=== PATIENT | male | born 1960 | race Caucasian/White ===

== ENCOUNTER 2021-05-22 14:03 | Inpatient (IN) ==
[2021-05-22] MEDS ORDERED: Ipratropium 1 PUFF INHALER IH PRN (20:19)
[2021-05-22] MEDS ORDERED: Naloxone 0.4 MG/ML INJ IVP PRN (20:33)
[2021-05-22] MEDS ORDERED: Ondansetron 4 MG/2 ML VIAL IVP PRN (20:33)
[2021-05-22] MEDS ORDERED: Dextrose Gel 15 GM/37.5 ML TUBE PO PRN ×2 (20:47)
[2021-05-22] MEDS ORDERED: D5% in Water 1,000 ML IVC PRN (20:47)
[2021-05-22] MEDS ORDERED: *HR* Dextrose 50 % in Water (Vial) 50 ML VIAL IVP PRN (20:59)
[2021-05-22] MEDS ORDERED: Insulin DETEMIR 100 UNIT/ML X5UNITS SUBQ SCH (21:00)
[2021-05-22] MEDS: Insulin LISPRO 300 UNITS/3 ML VIAL SUBQ SCH (23:18)
[2021-05-23] MEDS: Ipratropium 1 PUFF INHALER IH SCH ×5 (00:17→20:12)
[2021-05-23 03:24] LABS: Hematocrit 37.3 % (37.5-50.1); Hemoglobin 11.9 g/dL (12.9-16.9); Mean Corpuscular HGB Conc 31.9 g/dL (31.6-35.5); Mean Corpuscular Hemoglobin 29.1 pg (28.0-33.3); Mean Corpuscular Volume 91.2 fL (83.0-100.0); Mean Platelet Volume 10.2 fL (9.4-12.4); Platelet Count 272 K/mcL (140-400); Red Blood Count 4.09 M/mcL (4.19-5.50); Red Cell Distribution Width 14.8 % (11.5-14.5); White Blood Count 5.5 K/mcL (4.3-11.1)
[2021-05-23 03:37] LABS: Alanine Aminotransferase 19 Units/L (7-52); Albumin 3.4 g/dL (3.5-5.7); Albumin/Globulin Ratio 0.9 (1.1-2.2); Alkaline Phosphatase 54 Units/L (34-104); Aspartate Amino Transferase 34 Units/L (13-39); BUN/Creatinine Ratio 20 (6-26); Bilirubin,Total 0.3 mg/dL (0.3-1.0); Blood Urea Nitrogen 20 mg/dL (8-23); C-Reactive Protein 293 mg/L (Less than 10); Calcium 8.8 mg/dL (8.6-10.3); Carbon Dioxide 25 mEq/L (23-29); Chloride 100 mEq/L (98-107); Globulin 3.9 g/dL (2.4-3.5); Glucose 306 mg/dL (70-105); Lactate Dehydrogenase 569 Units/L (140-271); Osmolality,Calculated 294 (280-300); Potassium 4.5 mEq/L (3.5-5.1); Sodium 135 mEq/L (136-145); Total Protein 7.3 g/dL (6.4-8.9); eGFR For African Americans > 60 (> 60); eGFR For Non-African Americans > 60 (> 60)
[2021-05-23 03:46] LABS: INR 1.1; Prothrombin Time 12.2 Seconds (9.4-12.1)
[2021-05-23 03:47] LABS: Activated Partial Thrombo Time 33.3 Seconds (26.0-36.0)
[2021-05-23 03:53] LABS: Ferritin 451 ng/mL (20-250)
[2021-05-23] MEDS: Insulin LISPRO 300 UNITS/3 ML VIAL SUBQ SCH ×3 (05:50→17:03)
[2021-05-23] MEDS: *HR* Enoxaparin 40 MG/0.4 ML SYRINGE SQ SCH (05:51)
[2021-05-23] MEDS: Azithromycin 250 MG TABLET PO SCH (08:37)
[2021-05-23] MEDS: Zinc Sulfate 220 MG CAPSULE PO SCH (08:37)
[2021-05-23] MEDS: Cholecalciferol (D-3) 1,000 UNIT (25MCG) TABLET PO SCH (08:37)
[2021-05-23] MEDS: Gabapentin 300 MG CAPSULE PO SCH ×4 (08:37→19:54)
[2021-05-23] MEDS: cefTRIAXone 1,000 MG in 0.9 % Sodium Chloride Mini Bag 100 ML IVPB SCH (08:38)
[2021-05-23] MEDS ORDERED: Azithromycin 500 MG in 0.9 % Sodium Chloride 250 ML IVPB SCH (09:00)
[2021-05-23] MEDS ORDERED: Dexamethasone Sodium Phos/PF 10 MG/ML VIAL IVP SCH ×2 (09:00→14:00)
[2021-05-23] MEDS ORDERED: 0.9 % Sodium Chloride 1,000 ML IVC SCH (10:45)
[2021-05-23] MEDS: Budesonide/Formoterol 160/4.5 1 PUFF INH IH SCH ×2 (12:39→20:12)
[2021-05-23] MEDS: *HR* OxyCODONE/APAP 10/325 TABLET PO PRN ×2 (13:07→21:11)
[2021-05-23] MEDS ORDERED: Dexamethasone Sodium Phos/PF 10 MG/ML VIAL IVP ONE (14:45)
[2021-05-23] MEDS ORDERED: Insulin DETEMIR 100 UNIT/ML X5UNITS SUBQ SCH (21:00)
[2021-05-24] MEDS: Insulin LISPRO 300 UNITS/3 ML VIAL SUBQ SCH ×5 (02:34→17:02)
[2021-05-24 03:11] LABS: Hematocrit 34.7 % (37.5-50.1); Hemoglobin 10.9 g/dL (12.9-16.9); Mean Corpuscular HGB Conc 31.4 g/dL (31.6-35.5); Mean Corpuscular Hemoglobin 29.1 pg (28.0-33.3); Mean Corpuscular Volume 92.8 fL (83.0-100.0); Mean Platelet Volume 10.7 fL (9.4-12.4); Platelet Count 299 K/mcL (140-400); Red Blood Count 3.74 M/mcL (4.19-5.50)
[2021-05-24 03:19] LABS: White Blood Count 8.7 K/mcL (4.3-11.1)
[2021-05-24 03:32] LABS: VBG HCO3 26 mEq/L (21-27); VBG PCO2 46 mmHg (41-51); VBG PH 7.37 pH Units (7.32-7.42); VBG PO2 56 mmHg (25-50)
[2021-05-24] MEDS: Ipratropium 1 PUFF INHALER IH SCH ×4 (03:35→20:09)
[2021-05-24 03:36] LABS: BUN/Creatinine Ratio 24 (6-26); Blood Urea Nitrogen 24 mg/dL (8-23); Calcium 8.5 mg/dL (8.6-10.3); Carbon Dioxide 26 mEq/L (23-29); Chloride 100 mEq/L (98-107); Glucose 295 mg/dL (70-105); Magnesium 2.4 mg/dL (1.6-2.6); Osmolality,Calculated 297 (280-300); Phosphorous 3.5 mg/dL (2.7-4.5); Potassium 4.8 mEq/L (3.5-5.1); Sodium 136 mEq/L (136-145); eGFR For African Americans > 60 (> 60); eGFR For Non-African Americans > 60 (> 60)
[2021-05-24] MEDS: *HR* Enoxaparin 40 MG/0.4 ML SYRINGE SQ SCH (04:45)
[2021-05-24] MEDS: Budesonide/Formoterol 160/4.5 1 PUFF INH IH SCH ×2 (07:39→20:11)
[2021-05-24] MEDS: Gabapentin 300 MG CAPSULE PO SCH ×4 (08:49→22:09)
[2021-05-24] MEDS: *HR* OxyCODONE/APAP 10/325 TABLET PO PRN ×2 (08:50→17:00)
[2021-05-24] MEDS: Cholecalciferol (D-3) 1,000 UNIT (25MCG) TABLET PO SCH (08:50)
[2021-05-24] MEDS: Azithromycin 250 MG TABLET PO SCH (08:50)
[2021-05-24] MEDS: Zinc Sulfate 220 MG CAPSULE PO SCH (08:50)
[2021-05-24] MEDS: cefTRIAXone 1,000 MG in 0.9 % Sodium Chloride Mini Bag 100 ML IVPB SCH (08:53)
[2021-05-24] MEDS: Dexamethasone Sodium Phos/PF 10 MG/ML VIAL IVP SCH (08:53)
[2021-05-24] MEDS: Insulin DETEMIR 100 UNIT/ML X5UNITS SUBQ SCH ×2 (09:44→22:09)
[2021-05-24 12:57] LABS: Alanine Aminotransferase 18 Units/L (7-52); Albumin 3.3 g/dL (3.5-5.7); Alkaline Phosphatase 57 Units/L (34-104); Aspartate Amino Transferase 28 Units/L (13-39); Bilirubin,Direct 0.1 mg/dL (0.0-0.2); Bilirubin,Indirect 0.2 mg/dL (0.0-1.0); Bilirubin,Total 0.3 mg/dL (0.3-1.0); Globulin 3.2 g/dL (2.4-3.5); Total Protein 6.5 g/dL (6.4-8.9)
[2021-05-24 16:05] LABS: C-Reactive Protein 136 mg/L (Less than 10)
[2021-05-24] MEDS ORDERED: TOCILIZUMAB 810 MG in 0.9 % Sodium Chloride 95.5 ML IVPB ONE (17:00)
[2021-05-24] MEDS ORDERED: Lidocaine -MPF 1% 5 ML AMPUL INFILT ONE (18:46)
[2021-05-25] MEDS: Ipratropium 1 PUFF INHALER IH SCH ×4 (03:46→21:43)
[2021-05-25] MEDS: *HR* Enoxaparin 40 MG/0.4 ML SYRINGE SQ SCH (04:54)
[2021-05-25] MEDS: Dexamethasone Sodium Phos/PF 10 MG/ML VIAL IVP SCH (08:52)
[2021-05-25] MEDS: *HR* OxyCODONE/APAP 10/325 TABLET PO PRN (08:53)
[2021-05-25] MEDS: Azithromycin 250 MG TABLET PO SCH (08:53)
[2021-05-25] MEDS: Zinc Sulfate 220 MG CAPSULE PO SCH (08:53)
[2021-05-25] MEDS: Gabapentin 300 MG CAPSULE PO SCH ×4 (08:53→21:24)
[2021-05-25] MEDS: Cholecalciferol (D-3) 1,000 UNIT (25MCG) TABLET PO SCH (08:53)
[2021-05-25] MEDS: Insulin LISPRO 300 UNITS/3 ML VIAL SUBQ SCH ×3 (08:54→17:30)
[2021-05-25] MEDS: Insulin DETEMIR 100 UNIT/ML X5UNITS SUBQ SCH ×2 (09:19→21:24)
[2021-05-25] MEDS: Budesonide/Formoterol 160/4.5 1 PUFF INH IH SCH ×2 (09:20→21:43)
[2021-05-25 09:28] LABS: Hematocrit 36.7 % (37.5-50.1); Hemoglobin 11.6 g/dL (12.9-16.9); Mean Corpuscular HGB Conc 31.6 g/dL (31.6-35.5); Mean Corpuscular Hemoglobin 29.6 pg (28.0-33.3); Mean Corpuscular Volume 93.6 fL (83.0-100.0); Mean Platelet Volume 10.8 fL (9.4-12.4); Platelet Count 396 K/mcL (140-400); Red Blood Count 3.92 M/mcL (4.19-5.50); Red Cell Distribution Width 15.2 % (11.5-14.5); White Blood Count 8.2 K/mcL (4.3-11.1)
[2021-05-25 09:46] LABS: BUN/Creatinine Ratio 23 (6-26); Blood Urea Nitrogen 23 mg/dL (8-23); Calcium 8.9 mg/dL (8.6-10.3); Carbon Dioxide 26 mEq/L (23-29); Chloride 103 mEq/L (98-107); Glucose 227 mg/dL (70-105); Magnesium 2.1 mg/dL (1.6-2.6); Osmolality,Calculated 295 (280-300); Phosphorous 3.5 mg/dL (2.7-4.5); Potassium 4.6 mEq/L (3.5-5.1); Sodium 137 mEq/L (136-145); eGFR For African Americans > 60 (> 60); eGFR For Non-African Americans > 60 (> 60)
[2021-05-26] MEDS: *HR* Enoxaparin 40 MG/0.4 ML SYRINGE SQ SCH (04:46)
[2021-05-26] MEDS: Ipratropium 1 PUFF INHALER IH SCH ×4 (05:02→21:56)
[2021-05-26 05:47] LABS: Hematocrit 36.1 % (37.5-50.1); Hemoglobin 11.3 g/dL (12.9-16.9); Mean Corpuscular HGB Conc 31.3 g/dL (31.6-35.5); Mean Corpuscular Hemoglobin 28.9 pg (28.0-33.3); Mean Corpuscular Volume 92.3 fL (83.0-100.0); Mean Platelet Volume 10.6 fL (9.4-12.4); Platelet Count 410 K/mcL (140-400); Red Blood Count 3.91 M/mcL (4.19-5.50); Red Cell Distribution Width 14.9 % (11.5-14.5); White Blood Count 7.2 K/mcL (4.3-11.1)
[2021-05-26 05:54] LABS: BUN/Creatinine Ratio 25 (6-26); Blood Urea Nitrogen 23 mg/dL (8-23); Calcium 8.9 mg/dL (8.6-10.3); Carbon Dioxide 28 mEq/L (23-29); Chloride 104 mEq/L (98-107); Glucose 170 mg/dL (70-105); Osmolality,Calculated 294 (280-300); Potassium 4.4 mEq/L (3.5-5.1); Sodium 138 mEq/L (136-145); eGFR For African Americans > 60 (> 60); eGFR For Non-African Americans > 60 (> 60)
[2021-05-26] MEDS: Budesonide/Formoterol 160/4.5 1 PUFF INH IH SCH ×2 (07:47→22:01)
[2021-05-26] MEDS: Azithromycin 250 MG TABLET PO SCH (10:09)
[2021-05-26] MEDS: Gabapentin 300 MG CAPSULE PO SCH ×4 (10:09→21:21)
[2021-05-26] MEDS: Zinc Sulfate 220 MG CAPSULE PO SCH (10:09)
[2021-05-26] MEDS: Insulin LISPRO 300 UNITS/3 ML VIAL SUBQ SCH ×3 (10:10→16:33)
[2021-05-26] MEDS: Cholecalciferol (D-3) 1,000 UNIT (25MCG) TABLET PO SCH (10:10)
[2021-05-26] MEDS: Dexamethasone Sodium Phos/PF 10 MG/ML VIAL IVP SCH (10:10)
[2021-05-26] MEDS: Insulin DETEMIR 100 UNIT/ML X5UNITS SUBQ SCH ×2 (10:20→21:21)
[2021-05-26] MEDS: *HR* OxyCODONE/APAP 10/325 TABLET PO PRN ×2 (10:23→21:21)
[2021-05-27 02:50] LABS: Basophils % 0.3 %; Hematocrit 35.7 % (37.5-50.1); Hemoglobin 11.4 g/dL (12.9-16.9); Immature Granulocytes % 2.3 % (0-4); Lymphocytes # 0.8 K/mcL (0.6-4.6); Lymphocytes % 11.5 %; Mean Corpuscular HGB Conc 31.9 g/dL (31.6-35.5); Mean Corpuscular Hemoglobin 29.3 pg (28.0-33.3); Mean Corpuscular Volume 91.8 fL (83.0-100.0); Mean Platelet Volume 10.4 fL (9.4-12.4); Monocytes # 0.5 K/mcL (0.0-1.3); Monocytes % 7.6 %; Neutrophils # 5.5 K/mcL (1.6-8.9); Platelet Count 437 K/mcL (140-400); Red Blood Count 3.89 M/mcL (4.19-5.50); Red Cell Distribution Width 14.7 % (11.5-14.5); Segmented Neutrophils % 78.3 %
[2021-05-27 03:10] LABS: Alanine Aminotransferase 27 Units/L (7-52); Albumin 3.2 g/dL (3.5-5.7); Alkaline Phosphatase 68 Units/L (34-104); Aspartate Amino Transferase 30 Units/L (13-39); BUN/Creatinine Ratio 27 (6-26); Bilirubin,Total 0.5 mg/dL (0.3-1.0); Blood Urea Nitrogen 23 mg/dL (8-23); Calcium 8.5 mg/dL (8.6-10.3); Carbon Dioxide 27 mEq/L (23-29); Chloride 101 mEq/L (98-107); Globulin 3.1 g/dL (2.4-3.5); Glucose 230 mg/dL (70-105); Lactate Dehydrogenase 648 Units/L (140-271); Osmolality,Calculated 289 (280-300); Potassium 4.7 mEq/L (3.5-5.1); Sodium 134 mEq/L (136-145); Total Protein 6.3 g/dL (6.4-8.9); eGFR For African Americans > 60 (> 60); eGFR For Non-African Americans > 60 (> 60)
[2021-05-27 03:27] LABS: Ferritin 309 ng/mL (20-250)
[2021-05-27] MEDS: Ipratropium 1 PUFF INHALER IH SCH ×4 (04:10→22:06)
[2021-05-27] MEDS: *HR* Enoxaparin 40 MG/0.4 ML SYRINGE SQ SCH (05:49)
[2021-05-27] MEDS: Budesonide/Formoterol 160/4.5 1 PUFF INH IH SCH ×2 (07:38→22:06)
[2021-05-27] MEDS: Gabapentin 300 MG CAPSULE PO SCH ×4 (09:30→21:20)
[2021-05-27] MEDS: Dexamethasone Sodium Phos/PF 10 MG/ML VIAL IVP SCH (09:30)
[2021-05-27] MEDS: Zinc Sulfate 220 MG CAPSULE PO SCH (09:30)
[2021-05-27] MEDS: Cholecalciferol (D-3) 1,000 UNIT (25MCG) TABLET PO SCH (09:30)
[2021-05-27] MEDS: Insulin DETEMIR 100 UNIT/ML X5UNITS SUBQ SCH ×2 (09:45→21:04)
[2021-05-27] MEDS: Insulin LISPRO 300 UNITS/3 ML VIAL SUBQ SCH ×3 (09:45→16:33)
[2021-05-27] MEDS: *HR* OxyCODONE/APAP 10/325 TABLET PO PRN ×2 (09:54→18:30)
[2021-05-27] MEDS ORDERED: Furosemide 40 MG/4 ML VIAL IVP ONE (11:00)
[2021-05-28] MEDS: Ipratropium 1 PUFF INHALER IH SCH ×4 (05:02→20:49)
[2021-05-28] MEDS: *HR* OxyCODONE/APAP 10/325 TABLET PO PRN ×2 (05:08→14:43)
[2021-05-28] MEDS: *HR* Enoxaparin 40 MG/0.4 ML SYRINGE SQ SCH (05:08)
[2021-05-28 06:02] LABS: Basophils # 0.1 K/mcL (0.0-0.2); Basophils % 0.6 %; Eosinophils % 0.2 %; Hematocrit 40.5 % (37.5-50.1); Hemoglobin 12.7 g/dL (12.9-16.9); Lymphocytes # 1.2 K/mcL (0.6-4.6); Lymphocytes % 13.9 %; Mean Corpuscular HGB Conc 31.4 g/dL (31.6-35.5); Mean Corpuscular Hemoglobin 28.2 pg (28.0-33.3); Mean Corpuscular Volume 89.8 fL (83.0-100.0); Mean Platelet Volume 10.3 fL (9.4-12.4); Monocytes # 0.6 K/mcL (0.0-1.3); Monocytes % 7.3 %; Platelet Count 502 K/mcL (140-400); Red Blood Count 4.51 M/mcL (4.19-5.50); Red Cell Distribution Width 14.5 % (11.5-14.5); White Blood Count 8.4 K/mcL (4.3-11.1)
[2021-05-28 06:03] LABS: Neutrophils # 6.4 K/mcL (1.6-8.9)
[2021-05-28 06:16] LABS: BUN/Creatinine Ratio 31 (6-26); Blood Urea Nitrogen 27 mg/dL (8-23); Calcium 8.8 mg/dL (8.6-10.3); Carbon Dioxide 28 mEq/L (23-29); Chloride 102 mEq/L (98-107); Glucose 133 mg/dL (70-105); Osmolality,Calculated 287 (280-300); Potassium 4.4 mEq/L (3.5-5.1); Sodium 135 mEq/L (136-145); eGFR For African Americans > 60 (> 60); eGFR For Non-African Americans > 60 (> 60)
[2021-05-28 06:52] LABS: Reactive Lymphocytes Present (Not Present)
[2021-05-28] MEDS: Zinc Sulfate 220 MG CAPSULE PO SCH (08:40)
[2021-05-28] MEDS: Gabapentin 300 MG CAPSULE PO SCH ×4 (08:40→21:08)
[2021-05-28] MEDS: Dexamethasone Sodium Phos/PF 10 MG/ML VIAL IVP SCH (08:40)
[2021-05-28] MEDS: Cholecalciferol (D-3) 1,000 UNIT (25MCG) TABLET PO SCH (08:40)
[2021-05-28] MEDS: Insulin LISPRO 300 UNITS/3 ML VIAL SUBQ SCH ×3 (08:46→16:13)
[2021-05-28] MEDS: Budesonide/Formoterol 160/4.5 1 PUFF INH IH SCH ×2 (09:10→20:49)
[2021-05-28] MEDS: Furosemide 40 MG/4 ML VIAL IVP SCH (11:35)
[2021-05-28] MEDS: Insulin DETEMIR 100 UNIT/ML X5UNITS SUBQ SCH ×2 (11:35→21:09)
[2021-05-29] MEDS: *HR* Enoxaparin 40 MG/0.4 ML SYRINGE SQ SCH (05:12)
[2021-05-29] MEDS: *HR* OxyCODONE/APAP 10/325 TABLET PO PRN ×2 (05:12→16:39)
[2021-05-29] MEDS: Ipratropium 1 PUFF INHALER IH SCH ×4 (05:15→21:33)
[2021-05-29 05:58] LABS: Hematocrit 42.4 % (37.5-50.1); Hemoglobin 13.9 g/dL (12.9-16.9); Mean Corpuscular HGB Conc 32.8 g/dL (31.6-35.5); Mean Corpuscular Hemoglobin 29.2 pg (28.0-33.3); Mean Corpuscular Volume 89.1 fL (83.0-100.0); Mean Platelet Volume 9.9 fL (9.4-12.4); Platelet Count 579 K/mcL (140-400); Red Blood Count 4.76 M/mcL (4.19-5.50); Red Cell Distribution Width 14.4 % (11.5-14.5)
[2021-05-29 06:23] LABS: Alanine Aminotransferase 35 Units/L (7-52); Albumin 3.7 g/dL (3.5-5.7); Albumin/Globulin Ratio 1.2 (1.1-2.2); Alkaline Phosphatase 76 Units/L (34-104); Aspartate Amino Transferase 34 Units/L (13-39); BUN/Creatinine Ratio 34 (6-26); Bilirubin,Total 0.8 mg/dL (0.3-1.0); Blood Urea Nitrogen 31 mg/dL (8-23); Carbon Dioxide 24 mEq/L (23-29); Chloride 100 mEq/L (98-107); Globulin 3.1 g/dL (2.4-3.5); Glucose 120 mg/dL (70-105); Lactate Dehydrogenase 669 Units/L (140-271); Osmolality,Calculated 286 (280-300); Potassium 3.9 mEq/L (3.5-5.1); Sodium 134 mEq/L (136-145); Total Protein 6.8 g/dL (6.4-8.9); eGFR For African Americans > 60 (> 60); eGFR For Non-African Americans > 60 (> 60)
[2021-05-29 06:35] LABS: Ferritin 417 ng/mL (20-250)
[2021-05-29] MEDS: Insulin LISPRO 300 UNITS/3 ML VIAL SUBQ SCH ×3 (07:26→16:32)
[2021-05-29] MEDS: Furosemide 40 MG/4 ML VIAL IVP SCH (08:09)
[2021-05-29] MEDS: Dexamethasone Sodium Phos/PF 10 MG/ML VIAL IVP SCH (08:09)
[2021-05-29 08:36] LABS: Lymphocytes # 1.6 K/mcL (0.6-4.6); Monocytes # 0.4 K/mcL (0.0-1.3)
[2021-05-29] MEDS: Budesonide/Formoterol 160/4.5 1 PUFF INH IH SCH ×2 (09:02→21:34)
[2021-05-29] MEDS: Cholecalciferol (D-3) 1,000 UNIT (25MCG) TABLET PO SCH (09:22)
[2021-05-29] MEDS: Gabapentin 300 MG CAPSULE PO SCH ×4 (09:22→21:03)
[2021-05-29] MEDS: Zinc Sulfate 220 MG CAPSULE PO SCH (09:22)
[2021-05-29] MEDS: Insulin DETEMIR 100 UNIT/ML X5UNITS SUBQ SCH ×2 (12:36→21:04)
[2021-05-30] MEDS: Ipratropium 1 PUFF INHALER IH SCH ×4 (03:45→20:41)
[2021-05-30] MEDS: *HR* OxyCODONE/APAP 10/325 TABLET PO PRN ×2 (04:10→17:31)
[2021-05-30] MEDS: *HR* Enoxaparin 40 MG/0.4 ML SYRINGE SQ SCH (04:11)
[2021-05-30 05:01] LABS: Basophils % 0.3 %; Eosinophils # 0.1 K/mcL (0.0-0.6); Eosinophils % 1.2 %; Hematocrit 44.1 % (37.5-50.1); Hemoglobin 13.8 g/dL (12.9-16.9); Immature Granulocytes % 1.1 % (0-4); Lymphocytes # 1.3 K/mcL (0.6-4.6); Lymphocytes % 12.9 %; Mean Corpuscular HGB Conc 31.3 g/dL (31.6-35.5); Mean Corpuscular Hemoglobin 28.2 pg (28.0-33.3); Mean Corpuscular Volume 90.2 fL (83.0-100.0); Mean Platelet Volume 10.2 fL (9.4-12.4); Monocytes # 0.6 K/mcL (0.0-1.3); Monocytes % 6.3 %; Platelet Count 586 K/mcL (140-400); Red Blood Count 4.89 M/mcL (4.19-5.50); Red Cell Distribution Width 14.3 % (11.5-14.5); Segmented Neutrophils % 78.2 %; White Blood Count 9.9 K/mcL (4.3-11.1)
[2021-05-30 05:08] LABS: BUN/Creatinine Ratio 38 (6-26); Blood Urea Nitrogen 36 mg/dL (8-23); Calcium 8.8 mg/dL (8.6-10.3); Carbon Dioxide 26 mEq/L (23-29); Chloride 99 mEq/L (98-107); Glucose 153 mg/dL (70-105); Osmolality,Calculated 289 (280-300); Potassium 4.1 mEq/L (3.5-5.1); Sodium 134 mEq/L (136-145); eGFR For African Americans > 60 (> 60); eGFR For Non-African Americans > 60 (> 60)
[2021-05-30 05:36] LABS: Neutrophils # 7.7 K/mcL (1.6-8.9)
[2021-05-30 06:35] LABS: Reactive Lymphocytes Present (Not Present)
[2021-05-30 06:36] LABS: Platelet Estimate Increased (Normal)
[2021-05-30] MEDS: Budesonide/Formoterol 160/4.5 1 PUFF INH IH SCH ×2 (07:29→20:41)
[2021-05-30] MEDS: Dexamethasone Sodium Phos/PF 10 MG/ML VIAL IVP SCH (07:41)
[2021-05-30] MEDS: Insulin DETEMIR 100 UNIT/ML X5UNITS SUBQ SCH ×2 (07:42→21:05)
[2021-05-30] MEDS: Furosemide 40 MG/4 ML VIAL IVP SCH (07:42)
[2021-05-30] MEDS: Insulin LISPRO 300 UNITS/3 ML VIAL SUBQ SCH ×3 (07:42→17:26)
[2021-05-30] MEDS: Zinc Sulfate 220 MG CAPSULE PO SCH (07:43)
[2021-05-30] MEDS: Cholecalciferol (D-3) 1,000 UNIT (25MCG) TABLET PO SCH (07:43)
[2021-05-30] MEDS: Gabapentin 300 MG CAPSULE PO SCH ×4 (07:43→21:05)
[2021-05-30] MEDS: Melatonin 3 MG TABLET PO PRN (21:05)
[2021-05-31 02:39] LABS: Basophils % 0.2 %; Eosinophils # 0.1 K/mcL (0.0-0.6); Eosinophils % 0.9 %; Hematocrit 41.3 % (37.5-50.1); Hemoglobin 13.2 g/dL (12.9-16.9); Immature Granulocytes % 0.7 % (0-4); Lymphocytes % 9.4 %; Mean Corpuscular Hemoglobin 28.6 pg (28.0-33.3); Mean Corpuscular Volume 89.6 fL (83.0-100.0); Mean Platelet Volume 10.1 fL (9.4-12.4); Monocytes # 0.6 K/mcL (0.0-1.3); Monocytes % 5.9 %; Neutrophils # 8.9 K/mcL (1.6-8.9); Platelet Count 539 K/mcL (140-400); Red Blood Count 4.61 M/mcL (4.19-5.50); Red Cell Distribution Width 14.3 % (11.5-14.5); Segmented Neutrophils % 82.9 %; White Blood Count 10.8 K/mcL (4.3-11.1)
[2021-05-31 03:04] LABS: Alanine Aminotransferase 43 Units/L (7-52); Albumin 3.5 g/dL (3.5-5.7); Albumin/Globulin Ratio 1.3 (1.1-2.2); Alkaline Phosphatase 69 Units/L (34-104); Aspartate Amino Transferase 26 Units/L (13-39); BUN/Creatinine Ratio 37 (6-26); Bilirubin,Total 0.9 mg/dL (0.3-1.0); Blood Urea Nitrogen 32 mg/dL (8-23); Calcium 8.7 mg/dL (8.6-10.3); Carbon Dioxide 29 mEq/L (23-29); Chloride 98 mEq/L (98-107); Globulin 2.7 g/dL (2.4-3.5); Glucose 142 mg/dL (70-105); Lactate Dehydrogenase 508 Units/L (140-271); Osmolality,Calculated 287 (280-300); Sodium 134 mEq/L (136-145); Total Protein 6.2 g/dL (6.4-8.9); eGFR For African Americans > 60 (> 60); eGFR For Non-African Americans > 60 (> 60)
[2021-05-31 03:21] LABS: Ferritin 272 ng/mL (20-250)
[2021-05-31] MEDS: Ipratropium 1 PUFF INHALER IH SCH ×4 (03:53→20:57)
[2021-05-31] MEDS: *HR* Enoxaparin 40 MG/0.4 ML SYRINGE SQ SCH (06:17)
[2021-05-31] MEDS: Budesonide/Formoterol 160/4.5 1 PUFF INH IH SCH ×2 (09:33→20:58)
[2021-05-31] MEDS: Furosemide 40 MG/4 ML VIAL IVP SCH (09:38)
[2021-05-31] MEDS: Zinc Sulfate 220 MG CAPSULE PO SCH (09:39)
[2021-05-31] MEDS: Dexamethasone Sodium Phos/PF 10 MG/ML VIAL IVP SCH (09:39)
[2021-05-31] MEDS: Gabapentin 300 MG CAPSULE PO SCH ×4 (09:39→22:33)
[2021-05-31] MEDS: Cholecalciferol (D-3) 1,000 UNIT (25MCG) TABLET PO SCH (09:39)
[2021-05-31] MEDS: *HR* OxyCODONE/APAP 10/325 TABLET PO PRN ×2 (09:45→22:34)
[2021-05-31] MEDS: Insulin DETEMIR 100 UNIT/ML X5UNITS SUBQ SCH ×2 (09:46→22:34)
[2021-05-31] MEDS: Insulin LISPRO 300 UNITS/3 ML VIAL SUBQ SCH ×3 (10:01→17:50)
[2021-06-01 01:42] LABS: Basophils % 0.2 %; Eosinophils # 0.1 K/mcL (0.0-0.6); Eosinophils % 0.4 %; Hematocrit 37.8 % (37.5-50.1); Hemoglobin 12.3 g/dL (12.9-16.9); Immature Granulocytes % 0.4 % (0-4); Lymphocytes # 0.9 K/mcL (0.6-4.6); Lymphocytes % 7.8 %; Mean Corpuscular HGB Conc 32.5 g/dL (31.6-35.5); Mean Corpuscular Hemoglobin 29.1 pg (28.0-33.3); Mean Corpuscular Volume 89.6 fL (83.0-100.0); Monocytes # 0.7 K/mcL (0.0-1.3); Monocytes % 5.6 %; Platelet Count 486 K/mcL (140-400); Red Blood Count 4.22 M/mcL (4.19-5.50); Segmented Neutrophils % 85.6 %; White Blood Count 11.6 K/mcL (4.3-11.1)
[2021-06-01 02:00] LABS: BUN/Creatinine Ratio 34 (6-26); Blood Urea Nitrogen 28 mg/dL (8-23); Calcium 8.4 mg/dL (8.6-10.3); Carbon Dioxide 28 mEq/L (23-29); Chloride 98 mEq/L (98-107); Glucose 148 mg/dL (70-105); Osmolality,Calculated 284 (280-300); Potassium 4.2 mEq/L (3.5-5.1); Sodium 133 mEq/L (136-145); eGFR For African Americans > 60 (> 60); eGFR For Non-African Americans > 60 (> 60)
[2021-06-01] MEDS: Ipratropium 1 PUFF INHALER IH SCH ×4 (05:46→20:34)
[2021-06-01] MEDS: *HR* Enoxaparin 40 MG/0.4 ML SYRINGE SQ SCH (05:48)
[2021-06-01] MEDS: Budesonide/Formoterol 160/4.5 1 PUFF INH IH SCH ×2 (09:26→20:34)
[2021-06-01] MEDS: Insulin LISPRO 300 UNITS/3 ML VIAL SUBQ SCH ×3 (10:08→16:48)
[2021-06-01] MEDS: Furosemide 40 MG/4 ML VIAL IVP SCH (10:08)
[2021-06-01] MEDS: Zinc Sulfate 220 MG CAPSULE PO SCH (10:08)
[2021-06-01] MEDS: Gabapentin 300 MG CAPSULE PO SCH ×4 (10:08→20:27)
[2021-06-01] MEDS: Cholecalciferol (D-3) 1,000 UNIT (25MCG) TABLET PO SCH (10:08)
[2021-06-01] MEDS: Dexamethasone Sodium Phos/PF 10 MG/ML VIAL IVP SCH (10:09)
[2021-06-01] MEDS: Insulin DETEMIR 100 UNIT/ML X5UNITS SUBQ SCH ×2 (10:10→20:28)
[2021-06-01] MEDS: polyethylene glycoL 3350 17 GM POWD.PACK PO SCH (15:38)
[2021-06-01] MEDS: *HR* OxyCODONE/APAP 10/325 TABLET PO PRN (20:28)
[2021-06-02 02:54] LABS: Basophils % 0.2 %; Eosinophils # 0.1 K/mcL (0.0-0.6); Eosinophils % 0.5 %; Hematocrit 38.7 % (37.5-50.1); Hemoglobin 12.5 g/dL (12.9-16.9); Immature Granulocytes % 0.3 % (0-4); Lymphocytes # 1.1 K/mcL (0.6-4.6); Lymphocytes % 9.3 %; Mean Corpuscular HGB Conc 32.3 g/dL (31.6-35.5); Mean Corpuscular Hemoglobin 29.1 pg (28.0-33.3); Mean Corpuscular Volume 90.2 fL (83.0-100.0); Monocytes # 0.7 K/mcL (0.0-1.3); Monocytes % 5.8 %; Neutrophils # 9.6 K/mcL (1.6-8.9); Platelet Count 466 K/mcL (140-400); Red Blood Count 4.29 M/mcL (4.19-5.50); Red Cell Distribution Width 14.4 % (11.5-14.5); Segmented Neutrophils % 83.9 %; White Blood Count 11.5 K/mcL (4.3-11.1)
[2021-06-02 03:15] LABS: Alanine Aminotransferase 56 Units/L (7-52); Albumin 3.3 g/dL (3.5-5.7); Albumin/Globulin Ratio 1.2 (1.1-2.2); Alkaline Phosphatase 69 Units/L (34-104); Aspartate Amino Transferase 33 Units/L (13-39); BUN/Creatinine Ratio 34 (6-26); Bilirubin,Total 0.6 mg/dL (0.3-1.0); Blood Urea Nitrogen 30 mg/dL (8-23); Calcium 8.7 mg/dL (8.6-10.3); Carbon Dioxide 29 mEq/L (23-29); Chloride 98 mEq/L (98-107); Globulin 2.7 g/dL (2.4-3.5); Glucose 187 mg/dL (70-105); Lactate Dehydrogenase 409 Units/L (140-271); Osmolality,Calculated 287 (280-300); Potassium 4.3 mEq/L (3.5-5.1); Sodium 133 mEq/L (136-145); eGFR For African Americans > 60 (> 60); eGFR For Non-African Americans > 60 (> 60)
[2021-06-02 03:32] LABS: Ferritin 169 ng/mL (20-250)
[2021-06-02] MEDS: Ipratropium 1 PUFF INHALER IH SCH ×4 (05:10→20:48)
[2021-06-02] MEDS: *HR* Enoxaparin 40 MG/0.4 ML SYRINGE SQ SCH (05:31)
[2021-06-02] MEDS: Insulin LISPRO 300 UNITS/3 ML VIAL SUBQ SCH ×3 (07:46→17:23)
[2021-06-02] MEDS: Budesonide/Formoterol 160/4.5 1 PUFF INH IH SCH ×2 (08:34→20:49)
[2021-06-02] MEDS: Cholecalciferol (D-3) 1,000 UNIT (25MCG) TABLET PO SCH (10:08)
[2021-06-02] MEDS: Zinc Sulfate 220 MG CAPSULE PO SCH (10:08)
[2021-06-02] MEDS: polyethylene glycoL 3350 17 GM POWD.PACK PO SCH (10:08)
[2021-06-02] MEDS: Gabapentin 300 MG CAPSULE PO SCH ×4 (10:08→21:26)
[2021-06-02] MEDS: Insulin DETEMIR 100 UNIT/ML X5UNITS SUBQ SCH ×2 (10:09→21:27)
[2021-06-02] MEDS: Furosemide 40 MG/4 ML VIAL IVP SCH (10:09)
[2021-06-02] MEDS: *HR* OxyCODONE/APAP 10/325 TABLET PO PRN ×2 (10:13→21:34)
[2021-06-02] MEDS: Acetaminophen 325 MG TABLET PO PRN (14:19)
[2021-06-03] MEDS: Ipratropium 1 PUFF INHALER IH SCH ×4 (03:37→20:54)
[2021-06-03] MEDS: *HR* Enoxaparin 40 MG/0.4 ML SYRINGE SQ SCH (05:19)
[2021-06-03 06:46] LABS: Basophils % 0.2 %; Eosinophils # 0.2 K/mcL (0.0-0.6); Eosinophils % 2.3 %; Hematocrit 37.5 % (37.5-50.1); Hemoglobin 12.3 g/dL (12.9-16.9); Immature Granulocytes % 0.7 % (0-4); Lymphocytes # 1.1 K/mcL (0.6-4.6); Lymphocytes % 12.8 %; Mean Corpuscular HGB Conc 32.8 g/dL (31.6-35.5); Mean Corpuscular Hemoglobin 29.5 pg (28.0-33.3); Mean Corpuscular Volume 89.9 fL (83.0-100.0); Mean Platelet Volume 10.3 fL (9.4-12.4); Monocytes # 0.7 K/mcL (0.0-1.3); Monocytes % 8.2 %; Neutrophils # 6.7 K/mcL (1.6-8.9); Platelet Count 426 K/mcL (140-400); Red Blood Count 4.17 M/mcL (4.19-5.50); Red Cell Distribution Width 14.4 % (11.5-14.5); Segmented Neutrophils % 75.8 %; White Blood Count 8.8 K/mcL (4.3-11.1)
[2021-06-03 07:12] LABS: BUN/Creatinine Ratio 36 (6-26); Blood Urea Nitrogen 26 mg/dL (8-23); Calcium 8.8 mg/dL (8.6-10.3); Carbon Dioxide 31 mEq/L (23-29); Chloride 99 mEq/L (98-107); Glucose 113 mg/dL (70-105); Osmolality,Calculated 286 (280-300); Potassium 3.8 mEq/L (3.5-5.1); Sodium 135 mEq/L (136-145); eGFR For African Americans > 60 (> 60); eGFR For Non-African Americans > 60 (> 60)
[2021-06-03] MEDS: Insulin LISPRO 300 UNITS/3 ML VIAL SUBQ SCH ×3 (09:39→16:51)
[2021-06-03] MEDS: Furosemide 40 MG/4 ML VIAL IVP SCH (09:48)
[2021-06-03] MEDS: Gabapentin 300 MG CAPSULE PO SCH ×4 (09:49→20:15)
[2021-06-03] MEDS: Zinc Sulfate 220 MG CAPSULE PO SCH (09:49)
[2021-06-03] MEDS: Cholecalciferol (D-3) 1,000 UNIT (25MCG) TABLET PO SCH (09:49)
[2021-06-03] MEDS: polyethylene glycoL 3350 17 GM POWD.PACK PO SCH (09:50)
[2021-06-03] MEDS: *HR* OxyCODONE/APAP 10/325 TABLET PO PRN ×2 (09:56→20:15)
[2021-06-03] MEDS: Insulin DETEMIR 100 UNIT/ML X5UNITS SUBQ SCH ×2 (09:57→22:01)
[2021-06-03] MEDS: Budesonide/Formoterol 160/4.5 1 PUFF INH IH SCH ×2 (10:35→20:54)
[2021-06-04] MEDS: Ipratropium 1 PUFF INHALER IH SCH ×4 (03:38→21:10)
[2021-06-04] MEDS: *HR* Enoxaparin 40 MG/0.4 ML SYRINGE SQ SCH (06:06)
[2021-06-04] MEDS: Gabapentin 300 MG CAPSULE PO SCH ×4 (09:12→19:58)
[2021-06-04] MEDS: Furosemide 40 MG/4 ML VIAL IVP SCH (09:12)
[2021-06-04] MEDS: Cholecalciferol (D-3) 1,000 UNIT (25MCG) TABLET PO SCH (09:12)
[2021-06-04] MEDS: Zinc Sulfate 220 MG CAPSULE PO SCH (09:12)
[2021-06-04] MEDS: Insulin DETEMIR 100 UNIT/ML X5UNITS SUBQ SCH (09:12)
[2021-06-04] MEDS: polyethylene glycoL 3350 17 GM POWD.PACK PO SCH (09:13)
[2021-06-04] MEDS: Insulin LISPRO 300 UNITS/3 ML VIAL SUBQ SCH ×4 (09:13→20:49)
[2021-06-04] MEDS: *HR* OxyCODONE/APAP 10/325 TABLET PO PRN ×2 (09:13→19:58)
[2021-06-04 09:36] LABS: Basophils % 0.2 %; Eosinophils # 0.2 K/mcL (0.0-0.6); Eosinophils % 1.8 %; Hematocrit 39.9 % (37.5-50.1); Immature Granulocytes % 0.7 % (0-4); Lymphocytes # 1.4 K/mcL (0.6-4.6); Mean Corpuscular HGB Conc 32.6 g/dL (31.6-35.5); Mean Corpuscular Hemoglobin 29.4 pg (28.0-33.3); Mean Corpuscular Volume 90.3 fL (83.0-100.0); Mean Platelet Volume 10.1 fL (9.4-12.4); Monocytes # 0.9 K/mcL (0.0-1.3); Monocytes % 9.1 %; Neutrophils # 7.4 K/mcL (1.6-8.9); Platelet Count 479 K/mcL (140-400); Red Blood Count 4.42 M/mcL (4.19-5.50); Red Cell Distribution Width 14.7 % (11.5-14.5); Segmented Neutrophils % 74.2 %
[2021-06-04] MEDS: Budesonide/Formoterol 160/4.5 1 PUFF INH IH SCH ×2 (09:50→21:15)
[2021-06-04 09:55] LABS: BUN/Creatinine Ratio 27 (6-26); Blood Urea Nitrogen 26 mg/dL (8-23); Calcium 9.1 mg/dL (8.6-10.3); Carbon Dioxide 28 mEq/L (23-29); Chloride 99 mEq/L (98-107); Glucose 130 mg/dL (70-105); Osmolality,Calculated 287 (280-300); Sodium 135 mEq/L (136-145); eGFR For African Americans > 60 (> 60); eGFR For Non-African Americans > 60 (> 60)
[2021-06-04] MEDS: Acetaminophen 325 MG TABLET PO PRN (12:11)
[2021-06-04] MEDS ORDERED: *HR* Dextrose 50 % in Water (Syg) 50 ML SYRINGE IVP PRN (20:25)
[2021-06-04] MEDS ORDERED: D5% in Water 1,000 ML IVC PRN (20:25)
[2021-06-04] MEDS ORDERED: Dextrose Gel 15 GM/37.5 ML TUBE PO PRN ×2 (20:25)
[2021-06-05 03:35] LABS: Basophils % 0.2 %; Eosinophils # 0.1 K/mcL (0.0-0.6); Eosinophils % 1.4 %; Hematocrit 34.8 % (37.5-50.1); Immature Granulocytes % 0.6 % (0-4); Lymphocytes # 1.2 K/mcL (0.6-4.6); Lymphocytes % 13.2 %; Mean Corpuscular HGB Conc 32.8 g/dL (31.6-35.5); Mean Corpuscular Hemoglobin 29.6 pg (28.0-33.3); Mean Corpuscular Volume 90.4 fL (83.0-100.0); Mean Platelet Volume 10.2 fL (9.4-12.4); Monocytes # 0.8 K/mcL (0.0-1.3); Monocytes % 8.9 %; Neutrophils # 6.7 K/mcL (1.6-8.9); Platelet Count 379 K/mcL (140-400); Red Blood Count 3.85 M/mcL (4.19-5.50); Red Cell Distribution Width 14.7 % (11.5-14.5); Segmented Neutrophils % 75.7 %; White Blood Count 8.8 K/mcL (4.3-11.1)
[2021-06-05 03:36] LABS: Hemoglobin 11.4 g/dL (12.9-16.9)
[2021-06-05] MEDS: Ipratropium 1 PUFF INHALER IH SCH ×4 (03:41→21:02)
[2021-06-05 03:55] LABS: Alanine Aminotransferase 53 Units/L (7-52); Albumin 3.3 g/dL (3.5-5.7); Albumin/Globulin Ratio 1.4 (1.1-2.2); Alkaline Phosphatase 65 Units/L (34-104); Aspartate Amino Transferase 21 Units/L (13-39); BUN/Creatinine Ratio 34 (6-26); Bilirubin,Total 0.4 mg/dL (0.3-1.0); Blood Urea Nitrogen 26 mg/dL (8-23); Calcium 8.5 mg/dL (8.6-10.3); Carbon Dioxide 29 mEq/L (23-29); Chloride 100 mEq/L (98-107); Globulin 2.3 g/dL (2.4-3.5); Glucose 158 mg/dL (70-105); Osmolality,Calculated 290 (280-300); Potassium 3.8 mEq/L (3.5-5.1); Sodium 136 mEq/L (136-145); Total Protein 5.6 g/dL (6.4-8.9); eGFR For African Americans > 60 (> 60); eGFR For Non-African Americans > 60 (> 60)
[2021-06-05] MEDS: *HR* Enoxaparin 40 MG/0.4 ML SYRINGE SQ SCH (06:10)
[2021-06-05] MEDS: Budesonide/Formoterol 160/4.5 1 PUFF INH IH SCH ×2 (09:53→21:02)
[2021-06-05] MEDS: Zinc Sulfate 220 MG CAPSULE PO SCH (10:23)
[2021-06-05] MEDS: *HR* OxyCODONE/APAP 10/325 TABLET PO PRN ×2 (10:23→21:48)
[2021-06-05] MEDS: Cholecalciferol (D-3) 1,000 UNIT (25MCG) TABLET PO SCH (10:23)
[2021-06-05] MEDS: Gabapentin 300 MG CAPSULE PO SCH ×4 (10:24→21:48)
[2021-06-05] MEDS: Insulin DETEMIR 100 UNIT/ML X5UNITS SUBQ SCH (10:24)
[2021-06-05] MEDS: Furosemide 40 MG/4 ML VIAL IVP SCH (10:24)
[2021-06-05] MEDS: Insulin LISPRO 300 UNITS/3 ML VIAL SUBQ SCH ×4 (10:24→22:01)
[2021-06-05] MEDS: polyethylene glycoL 3350 17 GM POWD.PACK PO SCH (10:25)
[2021-06-05] MEDS: Acetaminophen 325 MG TABLET PO PRN (17:17)
[2021-06-05] MEDS: Melatonin 3 MG TABLET PO PRN (21:48)
[2021-06-06] MEDS: Ipratropium 1 PUFF INHALER IH SCH ×4 (04:16→20:20)
[2021-06-06] MEDS: *HR* Enoxaparin 40 MG/0.4 ML SYRINGE SQ SCH (06:32)
[2021-06-06 08:18] LABS: Basophils % 0.4 %; Eosinophils # 0.2 K/mcL (0.0-0.6); Eosinophils % 2.9 %; Hemoglobin 11.5 g/dL (12.9-16.9); Immature Granulocytes % 0.4 % (0-4); Lymphocytes # 1.3 K/mcL (0.6-4.6); Lymphocytes % 15.5 %; Mean Corpuscular HGB Conc 31.9 g/dL (31.6-35.5); Mean Corpuscular Volume 90.9 fL (83.0-100.0); Monocytes # 0.9 K/mcL (0.0-1.3); Monocytes % 11.1 %; Neutrophils # 5.7 K/mcL (1.6-8.9); Platelet Count 373 K/mcL (140-400); Red Blood Count 3.96 M/mcL (4.19-5.50); Red Cell Distribution Width 14.9 % (11.5-14.5); Segmented Neutrophils % 69.7 %; White Blood Count 8.2 K/mcL (4.3-11.1)
[2021-06-06] MEDS: Budesonide/Formoterol 160/4.5 1 PUFF INH IH SCH ×2 (08:24→20:20)
[2021-06-06 08:40] LABS: BUN/Creatinine Ratio 35 (6-26); Blood Urea Nitrogen 24 mg/dL (8-23); Calcium 8.9 mg/dL (8.6-10.3); Carbon Dioxide 29 mEq/L (23-29); Chloride 102 mEq/L (98-107); Glucose 122 mg/dL (70-105); Osmolality,Calculated 289 (280-300); Potassium 3.8 mEq/L (3.5-5.1); Sodium 137 mEq/L (136-145); eGFR For African Americans > 60 (> 60); eGFR For Non-African Americans > 60 (> 60)
[2021-06-06] MEDS: Insulin LISPRO 300 UNITS/3 ML VIAL SUBQ SCH ×4 (09:21→21:15)
[2021-06-06] MEDS: Gabapentin 300 MG CAPSULE PO SCH ×4 (09:34→21:11)
[2021-06-06] MEDS: Zinc Sulfate 220 MG CAPSULE PO SCH (09:35)
[2021-06-06] MEDS: Cholecalciferol (D-3) 1,000 UNIT (25MCG) TABLET PO SCH (09:35)
[2021-06-06] MEDS: polyethylene glycoL 3350 17 GM POWD.PACK PO SCH (09:37)
[2021-06-06] MEDS: Furosemide 40 MG/4 ML VIAL IVP SCH (09:37)
[2021-06-06] MEDS: *HR* OxyCODONE/APAP 10/325 TABLET PO PRN ×2 (09:40→21:11)
[2021-06-06] MEDS: Insulin DETEMIR 100 UNIT/ML X5UNITS SUBQ SCH (09:44)
[2021-06-06] MEDS: Acetaminophen 325 MG TABLET PO PRN (12:38)
[2021-06-06] MEDS: Melatonin 3 MG TABLET PO PRN (21:11)
[2021-06-07] MEDS: Ipratropium 1 PUFF INHALER IH SCH ×4 (03:48→20:44)
[2021-06-07] MEDS: *HR* Enoxaparin 40 MG/0.4 ML SYRINGE SQ SCH (05:27)
[2021-06-07] MEDS: Furosemide 40 MG/4 ML VIAL IVP SCH (08:03)
[2021-06-07] MEDS: Zinc Sulfate 220 MG CAPSULE PO SCH (08:03)
[2021-06-07] MEDS: Cholecalciferol (D-3) 1,000 UNIT (25MCG) TABLET PO SCH (08:03)
[2021-06-07] MEDS: Insulin DETEMIR 100 UNIT/ML X5UNITS SUBQ SCH (08:04)
[2021-06-07] MEDS: Gabapentin 300 MG CAPSULE PO SCH ×4 (08:04→21:20)
[2021-06-07] MEDS: Insulin LISPRO 300 UNITS/3 ML VIAL SUBQ SCH ×4 (08:04→21:21)
[2021-06-07] MEDS: polyethylene glycoL 3350 17 GM POWD.PACK PO SCH (08:04)
[2021-06-07] MEDS: *HR* OxyCODONE/APAP 10/325 TABLET PO PRN ×2 (08:13→21:20)
[2021-06-07] MEDS: Budesonide/Formoterol 160/4.5 1 PUFF INH IH SCH ×2 (10:03→20:44)
[2021-06-08] MEDS: Ipratropium 1 PUFF INHALER IH SCH ×4 (04:15→22:13)
[2021-06-08 04:44] LABS: Hemoglobin 12.8 g/dL (12.9-16.9); Immature Granulocytes % 0.2 % (0-4)
[2021-06-08 04:47] LABS: Basophils # 0.1 K/mcL (0.0-0.2); Basophils % 0.8 %; Eosinophils # 0.4 K/mcL (0.0-0.6); Hematocrit 40.8 % (37.5-50.1); Immature Platelets 3.4 % (1.1-6.1); Lymphocytes # 1.2 K/mcL (0.6-4.6); Lymphocytes % 13.5 %; Mean Corpuscular HGB Conc 31.4 g/dL (31.6-35.5); Mean Corpuscular Hemoglobin 28.6 pg (28.0-33.3); Mean Corpuscular Volume 91.3 fL (83.0-100.0); Mean Platelet Volume 10.2 fL (9.4-12.4); Monocytes # 0.8 K/mcL (0.0-1.3); Monocytes % 9.7 %; Neutrophils # 6.1 K/mcL (1.6-8.9); Platelet Count 325 K/mcL (140-400); Red Blood Count 4.47 M/mcL (4.19-5.50); Red Cell Distribution Width 15.1 % (11.5-14.5); Segmented Neutrophils % 70.8 %; White Blood Count 8.6 K/mcL (4.3-11.1)
[2021-06-08 04:53] LABS: Fibrinogen 258 mg/dL (169-393)
[2021-06-08 04:55] LABS: D-Dimer 1691 ng/mLFEU (0-500)
[2021-06-08 05:09] LABS: Alanine Aminotransferase 38 Units/L (7-52); Albumin 3.5 g/dL (3.5-5.7); Albumin/Globulin Ratio 1.5 (1.1-2.2); Alkaline Phosphatase 77 Units/L (34-104); Aspartate Amino Transferase 21 Units/L (13-39); BUN/Creatinine Ratio 35 (6-26); Bilirubin,Total 0.7 mg/dL (0.3-1.0); Blood Urea Nitrogen 25 mg/dL (8-23); Calcium 9.1 mg/dL (8.6-10.3); Carbon Dioxide 26 mEq/L (23-29); Chloride 101 mEq/L (98-107); Globulin 2.3 g/dL (2.4-3.5); Glucose 122 mg/dL (70-105); Lactate Dehydrogenase 421 Units/L (140-271); Magnesium 1.8 mg/dL (1.6-2.6); Osmolality,Calculated 288 (280-300); Phosphorous 4.3 mg/dL (2.7-4.5); Potassium 3.9 mEq/L (3.5-5.1); Sodium 136 mEq/L (136-145); Total Protein 5.8 g/dL (6.4-8.9); eGFR For African Americans > 60 (> 60); eGFR For Non-African Americans > 60 (> 60)
[2021-06-08] MEDS: *HR* Enoxaparin 40 MG/0.4 ML SYRINGE SQ SCH (05:10)
[2021-06-08 05:18] LABS: Ferritin 171 ng/mL (20-250)
[2021-06-08] MEDS ORDERED: *HR* FentaNYL (PF) 100 MCG/2 ML VIAL IVP ONE (08:40)
[2021-06-08] MEDS ORDERED: *HR* FentaNYL (PF) 100 MCG/2 ML VIAL ONE (08:40)
[2021-06-08] MEDS: Cisatracurium 200 MG in 0.9 % Sodium Chloride 180 ML IVC SCH ×2 (09:05→20:47)
[2021-06-08] MEDS: Midazolam HCl 50 MG/100 ML IV.SOLN IVC SCH ×2 (09:05→22:59)
[2021-06-08] MEDS: FentaNYL (PF) 1,000 MCG/100 ML IV.SOLN IVC SCH ×2 (09:05→18:10)
[2021-06-08 09:55] LABS: ABG Base Excess -18 mEq/L (-2 to 3); ABG HCO3 16 mEq/L (21-27); ABG Oxygen Saturation 57 % (95-98); ABG PCO2 72 mmHg (35-45); ABG PH 6.95 pH Units (7.32-7.45); ABG PO2 48 mmHg (85-104); ABG TCO2 18 mEq/L (20-26); Blood Gas Modality ASSIST CONTROL; Blood Gas VT 500 cc
[2021-06-08] MEDS ORDERED: Amiodarone Premix 150 MG/100 ML BAG IVPB ONE ×2 (09:58→10:24)
[2021-06-08] MEDS ORDERED: Amiodarone Premix 360 MG/200 ML BAG IVC ONE (09:58)
[2021-06-08] MEDS ORDERED: Perflutren Lipid Microsphere 1.3 ML in 0.9 % Sodium Chloride 8.7 ML IVP PRN (10:01)
[2021-06-08] MEDS ORDERED: *HR* Midazolam HCl 5 MG/5 ML VIAL IVP ONE ×2 (10:05→12:37)
[2021-06-08] MEDS: Budesonide/Formoterol 160/4.5 1 PUFF INH IH SCH ×2 (10:20→22:14)
[2021-06-08] MEDS: Amiodarone Premix 360 MG/200 ML BAG IVC ONE ×2 (10:24→16:00)
[2021-06-08] MEDS ORDERED: Sodium Bicarbonate 150 MEQ in D5% in Water 1,000 ML IVC SCH (11:00)
[2021-06-08] MEDS: Insulin LISPRO 300 UNITS/3 ML VIAL SUBQ SCH ×4 (11:56→23:29)
[2021-06-08] MEDS: levoFLOXacin 750 MG/150 ML 750 MG/150 ML BAG IVPB SCH (12:09)
[2021-06-08] MEDS ORDERED: 0.9 % Sodium Chloride 500 ML ONE (12:14)
[2021-06-08] MEDS ORDERED: Artificial Tears SOLN 15 ML BOTTLE BOTH EYES PRN (12:33)
[2021-06-08] MEDS ORDERED: *HR* Midazolam HCl 2 MG/2 ML VIAL IVP ONE (12:37)
[2021-06-08] MEDS ORDERED: *HR* Propofol 200 MG/20 ML VIAL IVP ONE (12:37)
[2021-06-08] MEDS ORDERED: *HR* Succinylcholine 200 MG/10 ML VIAL IVP ONE (12:37)
[2021-06-08] MEDS ORDERED: *HR* Etomidate 20 MG/10 ML AMPUL IVP ONE (12:37)
[2021-06-08] MEDS: Norepinephrine 4 MG/254 ML IV.SOLN IVC SCH ×5 (13:04→23:12)
[2021-06-08] MEDS: Furosemide 40 MG/4 ML VIAL IVP SCH (13:24)
[2021-06-08] MEDS: polyethylene glycoL 3350 17 GM POWD.PACK PO SCH (13:25)
[2021-06-08] MEDS: Gabapentin 300 MG CAPSULE PO SCH ×4 (13:26→19:31)
[2021-06-08] MEDS: Cholecalciferol (D-3) 1,000 UNIT (25MCG) TABLET PO SCH (13:40)
[2021-06-08] MEDS: Zinc Sulfate 220 MG CAPSULE PO SCH (13:40)
[2021-06-08] MEDS: Artificial Tears SOLN 15 ML BOTTLE BOTH EYES SCH ×3 (16:02→23:12)
[2021-06-08] MEDS: Amiodarone Premix 360 MG/200 ML BAG IVC SCH (16:24)
[2021-06-08] MEDS: Insulin DETEMIR 100 UNIT/ML X5UNITS SUBQ SCH ×2 (17:00→19:30)
[2021-06-08 17:10] LABS: Alanine Aminotransferase 134 Units/L (7-52); Albumin 3.3 g/dL (3.5-5.7); Albumin/Globulin Ratio 1.4 (1.1-2.2); Alkaline Phosphatase 96 Units/L (34-104); Aspartate Amino Transferase 109 Units/L (13-39); BUN/Creatinine Ratio 32 (6-26); Bilirubin,Total 0.4 mg/dL (0.3-1.0); Blood Urea Nitrogen 36 mg/dL (8-23); Calcium 7.8 mg/dL (8.6-10.3); Carbon Dioxide 29 mEq/L (23-29); Chloride 96 mEq/L (98-107); Globulin 2.4 g/dL (2.4-3.5); Glucose 391 mg/dL (70-105); Osmolality,Calculated 307 (280-300); Potassium 4.3 mEq/L (3.5-5.1); Sodium 136 mEq/L (136-145); Total Protein 5.7 g/dL (6.4-8.9); Troponin I 1.05 ng/mL (< 0.04); eGFR For African Americans > 60 (> 60); eGFR For Non-African Americans > 60 (> 60)
[2021-06-08 17:13] LABS: ABG Base Excess 0 mEq/L (-2 to 3); ABG HCO3 29 mEq/L (21-27); ABG Oxygen Saturation 90 % (95-98); ABG PCO2 66 mmHg (35-45); ABG PH 7.25 pH Units (7.32-7.45); ABG PO2 70 mmHg (85-104); ABG TCO2 31 mEq/L (20-26); Blood Gas Modality ASSIST CONTROL; Blood Gas VT 480 cc
[2021-06-08] MEDS ORDERED: *HR* Heparin 5,000 UNIT/ML VIAL IVP PRN ×2 (17:30)
[2021-06-08 18:47] LABS: Hematocrit 42.3 % (37.5-50.1); Hemoglobin 13.3 g/dL (12.9-16.9); Mean Corpuscular HGB Conc 31.4 g/dL (31.6-35.5); Mean Corpuscular Hemoglobin 29.4 pg (28.0-33.3); Mean Corpuscular Volume 93.4 fL (83.0-100.0); Platelet Count 391 K/mcL (140-400); Red Blood Count 4.53 M/mcL (4.19-5.50); Red Cell Distribution Width 15.3 % (11.5-14.5)
[2021-06-08 19:03] LABS: Heparin anti-factor XA UFH 0.15 IU/mL (0.30-0.70); INR 1.1; Prothrombin Time 12.8 Seconds (9.4-12.1)
[2021-06-08] MEDS: Heparin 25,000UNIT/250ML 1/2NS 25,000 UNIT/250 ML IV.SOLN IVC SCH (19:21)
[2021-06-08] MEDS: Phenylephrine 50 MG in 0.9 % Sodium Chloride 250 ML IVC SCH (19:31)
[2021-06-08] MEDS: Chlorhexidine Rinse 15 ML MOUTHWASH MM SCH (19:34)
[2021-06-08] MEDS ORDERED: Insulin DETEMIR 100 UNIT/ML X5UNITS SUBQ SCH (21:00)
[2021-06-09] MEDS: Ipratropium 1 PUFF INHALER IH SCH ×4 (03:28→21:42)
[2021-06-09 03:54] LABS: ABG Base Excess 1 mEq/L (-2 to 3); ABG HCO3 28 mEq/L (21-27); ABG Oxygen Saturation 98 % (95-98); ABG PCO2 49 mmHg (35-45); ABG PH 7.36 pH Units (7.32-7.45); ABG PO2 114 mmHg (85-104); ABG TCO2 29 mEq/L (20-26); Blood Gas VT 480 cc
[2021-06-09] MEDS: Amiodarone Premix 360 MG/200 ML BAG IVC SCH (03:59)
[2021-06-09] MEDS: Artificial Tears SOLN 15 ML BOTTLE BOTH EYES SCH ×5 (04:00→20:34)
[2021-06-09] MEDS: Insulin LISPRO 300 UNITS/3 ML VIAL SUBQ SCH ×5 (04:00→20:34)
[2021-06-09 04:08] LABS: Hematocrit 39.3 % (37.5-50.1); Hemoglobin 12.6 g/dL (12.9-16.9); Mean Corpuscular HGB Conc 32.1 g/dL (31.6-35.5); Mean Corpuscular Volume 90.6 fL (83.0-100.0); Mean Platelet Volume 9.8 fL (9.4-12.4); Platelet Count 325 K/mcL (140-400); Red Blood Count 4.34 M/mcL (4.19-5.50)
[2021-06-09] MEDS: Norepinephrine 4 MG/254 ML IV.SOLN IVC SCH (04:12)
[2021-06-09] MEDS: FentaNYL (PF) 1,000 MCG/100 ML IV.SOLN IVC SCH ×2 (04:14→15:44)
[2021-06-09 04:27] LABS: Alanine Aminotransferase 104 Units/L (7-52); Albumin 3.1 g/dL (3.5-5.7); Albumin/Globulin Ratio 1.4 (1.1-2.2); Alkaline Phosphatase 84 Units/L (34-104); Aspartate Amino Transferase 47 Units/L (13-39); BUN/Creatinine Ratio 38 (6-26); Bilirubin,Total 0.3 mg/dL (0.3-1.0); Blood Urea Nitrogen 29 mg/dL (8-23); Carbon Dioxide 30 mEq/L (23-29); Chloride 101 mEq/L (98-107); Globulin 2.2 g/dL (2.4-3.5); Glucose 205 mg/dL (70-105); Osmolality,Calculated 298 (280-300); Potassium 3.7 mEq/L (3.5-5.1); Sodium 138 mEq/L (136-145); Total Protein 5.3 g/dL (6.4-8.9); eGFR For African Americans > 60 (> 60); eGFR For Non-African Americans > 60 (> 60)
[2021-06-09] MEDS: levoFLOXacin 750 MG/150 ML 750 MG/150 ML BAG IVPB SCH (07:25)
[2021-06-09] MEDS: Dexamethasone Sodium Phos/PF 10 MG/ML VIAL IVP SCH (07:25)
[2021-06-09] MEDS: Furosemide 40 MG/4 ML VIAL IVP SCH (07:25)
[2021-06-09] MEDS: Chlorhexidine Rinse 15 ML MOUTHWASH MM SCH ×2 (07:26→20:34)
[2021-06-09] MEDS: polyethylene glycoL 3350 17 GM POWD.PACK PO SCH (07:27)
[2021-06-09] MEDS: Zinc Sulfate 220 MG CAPSULE PO SCH (07:28)
[2021-06-09] MEDS: Gabapentin 300 MG CAPSULE PO SCH (07:28)
[2021-06-09] MEDS: Cholecalciferol (D-3) 1,000 UNIT (25MCG) TABLET PO SCH (07:28)
[2021-06-09] MEDS: Pantoprazole 40 MG VIAL IVP SCH (07:28)
[2021-06-09] MEDS: Insulin DETEMIR 100 UNIT/ML X5UNITS SUBQ SCH ×2 (07:32→20:44)
[2021-06-09] MEDS: Budesonide/Formoterol 160/4.5 1 PUFF INH IH SCH ×2 (07:57→21:42)
[2021-06-09] MEDS: Cisatracurium 200 MG in 0.9 % Sodium Chloride 180 ML IVC SCH ×2 (10:33→23:53)
[2021-06-09] MEDS: Phenylephrine 50 MG in 0.9 % Sodium Chloride 250 ML IVC SCH (11:29)
[2021-06-09 16:17] LABS: Heparin anti-factor XA UFH 0.3 IU/mL (0.30-0.70)
[2021-06-09] MEDS: Midazolam HCl 50 MG/100 ML IV.SOLN IVC SCH (19:00)
[2021-06-09] MEDS: Heparin 25,000UNIT/250ML 1/2NS 25,000 UNIT/250 ML IV.SOLN IVC SCH (20:31)
[2021-06-10] MEDS: Artificial Tears SOLN 15 ML BOTTLE BOTH EYES SCH ×7 (00:01→23:57)
[2021-06-10] MEDS: Insulin LISPRO 300 UNITS/3 ML VIAL SUBQ SCH ×6 (00:01→20:06)
[2021-06-10 00:30] LABS: ABG Base Excess 6 mEq/L (-2 to 3); ABG HCO3 32 mEq/L (21-27); ABG Oxygen Saturation 75 % (95-98); ABG PCO2 55 mmHg (35-45); ABG PH 7.38 pH Units (7.32-7.45); ABG PO2 42 mmHg (85-104); ABG TCO2 34 mEq/L (20-26); Blood Gas VT 480 cc
[2021-06-10] MEDS: Norepinephrine 4 MG/254 ML IV.SOLN IVC SCH ×4 (00:52→23:56)
[2021-06-10] MEDS: FentaNYL (PF) 1,000 MCG/100 ML IV.SOLN IVC SCH ×5 (01:30→20:03)
[2021-06-10] MEDS: Ipratropium 1 PUFF INHALER IH SCH ×4 (03:41→21:03)
[2021-06-10 03:43] LABS: ABG Base Excess 4 mEq/L (-2 to 3); ABG HCO3 31 mEq/L (21-27); ABG Oxygen Saturation 84 % (95-98); ABG PCO2 51 mmHg (35-45); ABG PH 7.39 pH Units (7.32-7.45); ABG PO2 51 mmHg (85-104); ABG TCO2 32 mEq/L (20-26); Blood Gas VT 480 cc
[2021-06-10 03:58] LABS: VBG Ionized Calcium 1.17 mmol/L (1.15-1.35)
[2021-06-10 04:00] LABS: Hematocrit 39.6 % (37.5-50.1); Hemoglobin 12.2 g/dL (12.9-16.9); Mean Corpuscular HGB Conc 30.8 g/dL (31.6-35.5); Mean Corpuscular Hemoglobin 28.6 pg (28.0-33.3); Mean Platelet Volume 10.2 fL (9.4-12.4); Platelet Count 251 K/mcL (140-400); Red Blood Count 4.26 M/mcL (4.19-5.50); Red Cell Distribution Width 15.4 % (11.5-14.5); White Blood Count 17.6 K/mcL (4.3-11.1)
[2021-06-10 04:24] LABS: Alanine Aminotransferase 72 Units/L (7-52); Albumin 3.1 g/dL (3.5-5.7); Albumin/Globulin Ratio 1.4 (1.1-2.2); Alkaline Phosphatase 76 Units/L (34-104); Aspartate Amino Transferase 21 Units/L (13-39); BUN/Creatinine Ratio 32 (6-26); Bilirubin,Total 0.3 mg/dL (0.3-1.0); Blood Urea Nitrogen 24 mg/dL (8-23); Calcium 8.6 mg/dL (8.6-10.3); Carbon Dioxide 31 mEq/L (23-29); Chloride 103 mEq/L (98-107); Globulin 2.2 g/dL (2.4-3.5); Glucose 151 mg/dL (70-105); Osmolality,Calculated 299 (280-300); Phosphorous 3.2 mg/dL (2.7-4.5); Potassium 3.9 mEq/L (3.5-5.1); Sodium 141 mEq/L (136-145); Total Protein 5.3 g/dL (6.4-8.9); eGFR For African Americans > 60 (> 60); eGFR For Non-African Americans > 60 (> 60)
[2021-06-10] MEDS ORDERED: Furosemide 40 MG/4 ML VIAL IVP ONE (04:53)
[2021-06-10] MEDS: Midazolam HCl 50 MG/100 ML IV.SOLN IVC SCH ×3 (05:17→22:13)
[2021-06-10] MEDS: Furosemide 40 MG/4 ML VIAL IVP SCH (07:53)
[2021-06-10] MEDS: Chlorhexidine Rinse 15 ML MOUTHWASH MM SCH ×2 (07:53→20:03)
[2021-06-10] MEDS: Dexamethasone Sodium Phos/PF 10 MG/ML VIAL IVP SCH (07:53)
[2021-06-10] MEDS: levoFLOXacin 750 MG/150 ML 750 MG/150 ML BAG IVPB SCH (07:54)
[2021-06-10] MEDS: Pantoprazole 40 MG VIAL IVP SCH (07:55)
[2021-06-10] MEDS: Insulin DETEMIR 100 UNIT/ML X5UNITS SUBQ SCH ×2 (08:35→20:03)
[2021-06-10] MEDS: Cholecalciferol (D-3) 1,000 UNIT (25MCG) TABLET PO SCH (08:36)
[2021-06-10] MEDS: Zinc Sulfate 220 MG CAPSULE PO SCH (08:37)
[2021-06-10] MEDS: Budesonide/Formoterol 160/4.5 1 PUFF INH IH SCH ×2 (09:59→21:04)
[2021-06-10] MEDS: Cisatracurium 200 MG in 0.9 % Sodium Chloride 180 ML IVC SCH (11:13)
[2021-06-10] MEDS: Phenylephrine 50 MG in 0.9 % Sodium Chloride 250 ML IVC SCH (14:32)
[2021-06-10] MEDS ORDERED: Magnesium Sulfate 1 GM/102 ML PIGGYBACK IVPB ONE (17:42)
[2021-06-10] MEDS: Amiodarone Premix 360 MG/200 ML BAG IVC SCH (18:20)
[2021-06-10] MEDS: Heparin 25,000UNIT/250ML 1/2NS 25,000 UNIT/250 ML IV.SOLN IVC SCH ×2 (19:59→23:58)
[2021-06-11] MEDS: Insulin LISPRO 300 UNITS/3 ML VIAL SUBQ SCH ×7 (00:01→23:58)
[2021-06-11] MEDS: Norepinephrine 4 MG/254 ML IV.SOLN IVC SCH (00:02)
[2021-06-11] MEDS: Cisatracurium 200 MG in 0.9 % Sodium Chloride 180 ML IVC SCH ×2 (00:03→15:22)
[2021-06-11] MEDS: FentaNYL (PF) 1,000 MCG/100 ML IV.SOLN IVC SCH ×5 (02:16→23:34)
[2021-06-11] MEDS: Artificial Tears SOLN 15 ML BOTTLE BOTH EYES SCH ×6 (03:28→23:57)
[2021-06-11] MEDS: Ipratropium 1 PUFF INHALER IH SCH ×4 (04:05→19:45)
[2021-06-11 04:23] LABS: ABG Base Excess 4 mEq/L (-2 to 3); ABG HCO3 30 mEq/L (21-27); ABG Oxygen Saturation 96 % (95-98); ABG PCO2 51 mmHg (35-45); ABG PH 7.38 pH Units (7.32-7.45); ABG PO2 86 mmHg (85-104); ABG TCO2 32 mEq/L (20-26); Blood Gas Modality ASSIST CONTROL; Blood Gas VT 480 cc
[2021-06-11 04:41] LABS: Magnesium 2.5 mg/dL (1.6-2.6); Phosphorous 5.2 mg/dL (2.7-4.5)
[2021-06-11 04:42] LABS: Alanine Aminotransferase 53 Units/L (7-52); Albumin 3.3 g/dL (3.5-5.7); Albumin/Globulin Ratio 1.5 (1.1-2.2); Alkaline Phosphatase 91 Units/L (34-104); Aspartate Amino Transferase 14 Units/L (13-39); BUN/Creatinine Ratio 32 (6-26); Bilirubin,Total 0.3 mg/dL (0.3-1.0); Blood Urea Nitrogen 34 mg/dL (8-23); Calcium 8.9 mg/dL (8.6-10.3); Carbon Dioxide 32 mEq/L (23-29); Chloride 103 mEq/L (98-107); Globulin 2.2 g/dL (2.4-3.5); Glucose 181 mg/dL (70-105); Osmolality,Calculated 306 (280-300); Potassium 4.4 mEq/L (3.5-5.1); Sodium 142 mEq/L (136-145); Total Protein 5.5 g/dL (6.4-8.9); eGFR For African Americans > 60 (> 60); eGFR For Non-African Americans > 60 (> 60)
[2021-06-11 05:58] LABS: Hematocrit 38.3 % (37.5-50.1); Hemoglobin 11.8 g/dL (12.9-16.9); Mean Corpuscular HGB Conc 30.8 g/dL (31.6-35.5); Mean Corpuscular Hemoglobin 29.6 pg (28.0-33.3); Mean Platelet Volume 10.9 fL (9.4-12.4); Platelet Count 227 K/mcL (140-400); Red Blood Count 3.99 M/mcL (4.19-5.50); Red Cell Distribution Width 15.4 % (11.5-14.5)
[2021-06-11] MEDS: Amiodarone Premix 360 MG/200 ML BAG IVC SCH ×2 (06:09→18:45)
[2021-06-11] MEDS: Midazolam HCl 50 MG/100 ML IV.SOLN IVC SCH ×2 (06:10→15:19)
[2021-06-11] MEDS: Budesonide/Formoterol 160/4.5 1 PUFF INH IH SCH ×2 (07:40→19:45)
[2021-06-11] MEDS: Pantoprazole 40 MG VIAL IVP SCH (08:40)
[2021-06-11] MEDS: levoFLOXacin 750 MG/150 ML 750 MG/150 ML BAG IVPB SCH (08:40)
[2021-06-11] MEDS: Chlorhexidine Rinse 15 ML MOUTHWASH MM SCH ×2 (08:41→20:23)
[2021-06-11] MEDS: Furosemide 40 MG/4 ML VIAL IVP SCH (08:41)
[2021-06-11] MEDS: Insulin DETEMIR 100 UNIT/ML X5UNITS SUBQ SCH ×2 (08:41→20:23)
[2021-06-11] MEDS: Dexamethasone Sodium Phos/PF 10 MG/ML VIAL IVP SCH (08:41)
[2021-06-11] MEDS: Cholecalciferol (D-3) 1,000 UNIT (25MCG) TABLET PO SCH (12:16)
[2021-06-11] MEDS: Zinc Sulfate 220 MG CAPSULE PO SCH (12:16)
[2021-06-11] MEDS: Phenylephrine 50 MG in 0.9 % Sodium Chloride 250 ML IVC SCH (12:24)
[2021-06-11] MEDS ORDERED: Cisatracurium 200 MG in 0.9 % Sodium Chloride 180 ML IVC SCH (23:30)
[2021-06-12] MEDS: Midazolam HCl 50 MG/100 ML IV.SOLN IVC SCH (01:22)
[2021-06-12] MEDS: Ipratropium 1 PUFF INHALER IH SCH ×2 (03:15→11:01)
[2021-06-12 03:32] LABS: ABG Base Excess 7 mEq/L (-2 to 3); ABG HCO3 34 mEq/L (21-27); ABG Oxygen Saturation 87 % (95-98); ABG PCO2 64 mmHg (35-45); ABG PH 7.34 pH Units (7.32-7.45); ABG PO2 59 mmHg (85-104); ABG TCO2 36 mEq/L (20-26); Blood Gas VT 480 cc
[2021-06-12] MEDS: Heparin 25,000UNIT/250ML 1/2NS 25,000 UNIT/250 ML IV.SOLN IVC SCH (03:53)
[2021-06-12] MEDS: FentaNYL (PF) 1,000 MCG/100 ML IV.SOLN IVC SCH ×2 (04:34→11:04)
[2021-06-12 05:24] LABS: Hematocrit 37.5 % (37.5-50.1); Hemoglobin 11.3 g/dL (12.9-16.9); Mean Corpuscular HGB Conc 30.1 g/dL (31.6-35.5); Mean Corpuscular Hemoglobin 28.9 pg (28.0-33.3); Mean Corpuscular Volume 95.9 fL (83.0-100.0); Mean Platelet Volume 10.6 fL (9.4-12.4); Platelet Count 187 K/mcL (140-400); Red Blood Count 3.91 M/mcL (4.19-5.50); Red Cell Distribution Width 15.7 % (11.5-14.5); White Blood Count 13.6 K/mcL (4.3-11.1)
[2021-06-12] MEDS: Insulin LISPRO 300 UNITS/3 ML VIAL SUBQ SCH ×2 (05:33→08:25)
[2021-06-12] MEDS: Artificial Tears SOLN 15 ML BOTTLE BOTH EYES SCH (05:33)
[2021-06-12 05:42] LABS: Alanine Aminotransferase 39 Units/L (7-52); Albumin 3.2 g/dL (3.5-5.7); Albumin/Globulin Ratio 1.4 (1.1-2.2); Alkaline Phosphatase 78 Units/L (34-104); Aspartate Amino Transferase 18 Units/L (13-39); BUN/Creatinine Ratio 36 (6-26); Bilirubin,Total 0.3 mg/dL (0.3-1.0); Blood Urea Nitrogen 37 mg/dL (8-23); Carbon Dioxide 33 mEq/L (23-29); Chloride 103 mEq/L (98-107); Globulin 2.3 g/dL (2.4-3.5); Glucose 172 mg/dL (70-105); Magnesium 2.5 mg/dL (1.6-2.6); Osmolality,Calculated 307 (280-300); Potassium 4.5 mEq/L (3.5-5.1); Sodium 142 mEq/L (136-145); Total Protein 5.5 g/dL (6.4-8.9); eGFR For African Americans > 60 (> 60); eGFR For Non-African Americans > 60 (> 60)
[2021-06-12 05:43] LABS: Heparin anti-factor XA UFH 0.34 IU/mL (0.30-0.70)
[2021-06-12 07:54] VITALS: TEMP 98.3
[2021-06-12] MEDS ORDERED: Amiodarone Premix 360 MG/200 ML BAG IVC ONE (08:34)
[2021-06-12] MEDS ORDERED: *HR* Amiodarone 200 MG TABLET PO SCH (09:00)
[2021-06-12 09:12] VITALS: BP 112/58; PULSE 82; O2SAT 91
[2021-06-12] MEDS ORDERED: *HR* FentaNYL (PF) 100 MCG/2 ML VIAL IVP PRN (10:17)
[2021-06-12] MEDS ORDERED: Haloperidol Lactate 5 MG/ML VIAL IVP PRN (10:18)
[2021-06-12] MEDS ORDERED: Atropine 1% Opth Drops 100 DROP/5 ML BOTTLE SL PRN (10:19)
[2021-06-12] MEDS: Budesonide/Formoterol 160/4.5 1 PUFF INH IH SCH (11:01)
[2021-06-12] MEDS: *HR* LORazepam 2 MG/ML VIAL IVP PRN ×2 (11:38→12:03)
[2021-06-12] MEDS ORDERED: Glycopyrrolate 0.2 MG/ML VIAL IVP ONE (12:10)
[2021-06-12] MEDS ORDERED: *HR* Enoxaparin 100 MG/ML SYRINGE SQ SCH (18:00)
== END 2021-06-12 12:38 | disposition expired | DRG 871 ==
LOC: 2NENU → SUATTDRO 20:33 → UNDODISIN 06-06 13:06 → ICNU 06-08 09:05
PROVIDERS: ADMIT Internal Medicine; ATTEND Internal Medicine